=== PATIENT | female | born 1995 | race African-American/Black ===

== ENCOUNTER 2018-04-14 07:42 | Emergency (ER) | payer OTHER, MEDICAID, SELFPAY ==
[2018-04-14 08:04] VITALS: BP 120/88; PULSE 76; RESP 16; TEMP 36.8; O2SAT 100; BMI 26.1
--- NOTE | 2018-04-14 08:23 | ED.PREGNANCY ---
HPI - General Chief complaint: Vaginal Bleeding Stated complaint: MISCARRIAGE Time Seen by Provider: 04/14/18 08:13 Source: patient Mode of arrival: ambulatory Limitations: no limitations History of Present Illness HPI Narrative: 22-year-old otherwise healthy female here for evaluation of vaginal bleeding. Patient is approximately 11 weeks EGA. . Eleven weeks EGA is from a first-trimester ultrasound performed 2 weeks ago. Patient is here for 2 episodes of vaginal spotting. Denies abdominal pain. Denies nausea or vomiting. Has had some constipation secondary to the vitamins. Lost her 1st at 24 weeks from unknown causes. No fevers. No urinary symptoms. No prior abdominal surgeries. Patient : Yes Related Data Previous Rx's Medication Instructions Recorded vit-iron fum-folic ac 1 cap PO QDAY #90 cap 01/29/17 [Mynatal] oxycodone-acetaminophen 0 tab PO Q4HP PRN #30 09/09/17 Allergies Allergy/AdvReac Type Severity Reaction Status Date / Time No Known Drug Allergies Allergy Unknown Unverified 12/10/17 12:44 [NO KNOWN DRUG ALLERGIES] Review of Systems Constitutional Denies fever(s) and Denies lethargy ENT Ears, Nose, Mouth, and Throat: Denies vertigo and Denies dizziness Cardiovascular Denies chest pain and Denies dyspnea Respiratory Denies dyspnea Gastrointestinal Gastrointestinal: Denies abdominal pain, Reports constipation, Denies diarrhea, Denies nausea and Denies vomiting Genitourinary Denies dysuria, Denies pelvic pain, Denies urinary hesitancy, Denies urinary urgency and Denies vaginal discharge Comments: Vaginal bleeding in Musculoskeletal Denies myalgias and Denies arthralgias Integumentary/Breasts Denies lesions and Denies rash Neurologic Denies confusion, Denies vertigo and Denies dizziness Psychiatric Denies confusion Hematologic/Lymphatic Denies easy bleeding and Denies easy bruising PMFSH - Past Medical History Medical history: Reports no medical history Surgical history: Reports other (Fibroid) RECORDER OF DEEDS history: Reports Spontaneous Patient : Yes Family history: Reports no significant family history Exam Initial Vital Signs Initial Vital Signs: Vital Signs Temperature 98.2 F 04/14/18 08:04 Pulse Rate 76 04/14/18 08:04 Respiratory Rate 16 04/14/18 08:04 Blood Pressure 120/88 H 08/14/18 08:04 Pulse Oximetry 100 08/14/18 08:04 Const General: cooperative, healthy appearing and comfortable Orientation: alert, awake and oriented x3 HENMT Head: normal to inspection and normocephalic Resp Effort & Inspection: normal respiratory effort Cardio Rate: regular rate GI Inspection: normal to inspection and non-distended Palpation: soft, No firm and No tender Back/Spine/Pelvis Back: No CVA tenderness Skin Lesions: no lesions Rashes: no rashes Neuro General: awake and oriented x3 Cognition: normal cognition Speech: speech normal Extrem General: normal to inspection and capillary refill normal Psych Appearance: grossly normal and well kempt Course Orders Ordered: ED Orders 04/14/18 08:23 US OB <= 14 weeks fetus Stat 04/14/18 08:35 ABO RH Type Stat HCG Quantitative Stat Discontinued Medications Rho Immune Globulin (Hyperrho S-D) 1,500 unit IM NOW ONE Stop: 04/14/18 09:29 Vital Signs - 8 hr 04/14/18 08:04 Temperature 98.2 F Pulse Rate 76 Respiratory Rate 16 Blood Pressure 120/88 H Pulse Oximetry 100 MDM - OB/Uterine Contractions Medical Records Attestation: I reviewed the patient's medical records. Lab Data Attestation: I reviewed the patient's lab results. Lab Results 04/14/18 04/14/18 Range/Units 08:35 08:35 HCG, Quant 1486.6 mIU/mL Blood Type AB Negative Imaging Data US - abdomen: Radiologist's impression: PROCEDURE: US OB <= 14 WEEKS FETUS INDICATIONS: 11 weeks EGA with bleeding OUTSIDE/PRIOR DATING DATA: Last menstrual period (LMP): Unknown. LMP-based estimated date of delivery (MOY): N./A.. First dating scan (date and location): 04/14/2018. Estimated date of delivery (MOY) from first dating scan: 11/13/2018. TECHNIQUE: Real-time scanning was performed of the fetus and maternal pelvic organs, with image documentation. Endovaginal scanning was also performed to better visualize the fetus and maternal ovaries. COMPARISON: None. FINDINGS: Embryo: Intrauterine gestational sac contains a pole which shows crown-rump length of 2.7 cm, corresponding to estimated gestational age of 9 weeks 4 days. No cardiac activity is evident. Measurement variability in dating: +/- 4 weeks by LMP, +/- 7 days by mean sac diameter (use before 6 weeks gestation if crown-rump length not able to be measured), +/- 5 days by crown-rump length (up to 8 weeks 6 days gestation), +/- 7 days by crown-rump length (up to 13 weeks 6 days gestation). Maternal organs: Ovaries are not imaged. Limited images through the kidneys demonstrate no hydronephrosis. IMPRESSION: Intrauterine demise at 9 weeks 4 days gestational age. Report called to the ED by the technologist at 0905 hrs. Dictated by: Nikolas Romero M.D. on 04/14/2018 at 9:21 Approved by: Nikolas Romero M.D. on 04/14/2018 at 9:24 MDM Narrative Medical decision making narrative: Patient is Rh negative. Was given RhoGAM here in the ER. Ultrasound concerning for intrauterine demise. Discussed this with the patient and the father of the baby and her who was at bedside. Will follow up with Dr. Ferguson who is their OB provider. They were given return precautions. They expressed understanding and agreement with plan. Discharge Plan Departure Patient Disposition: Home, Self-Care Clinical Impression: Miscarriage Instructions: Dealing With Miscarriage, DI for Miscarriage Activity Restrictions/Additional Instructions: Recommend you follow up with Dr. Ferguson like we discussed. Return to the emergency department for any fevers, worsening abdominal pain, worsening bleeding, or any other new or concerning symptoms. You can continue to take your vitamins. Prescriptions: No Action vit-iron fum-folic ac [Mynatal] 1 EACH capsule 1 cap PO QDAY Qty: 90 RF: 3 oxycodone-acetaminophen 5 MG/325 MG tablet PO Q4HP PRNQty: 30 RF: 0
[2018-04-14 09:16] LABS: HCG Quantitative /Beta subunit 1486.6 mIU/mL
[2018-04-14 10:34] VITALS: BP 107/71; PULSE 63; RESP 16; O2SAT 100
[2018-04-14] MEDS: RHO(D) IMMUNE GLOBULIN 1,500 UNIT SYRINGE 1500 UNIT IM (11:12)
== END 2018-04-14 11:12 | disposition home or self-care (01) ==
PROVIDERS: Emergency Provider Emergency Medicine; PCP Obstetrics & Gynecology
DX: O03.9 Complete or unspecified spontaneous abortion without complication (principal)
CPT/HCPCS: 36415; 76801; 81003; 84702; 86900; 86901; 96372; 99282; 99284; J2790

== ENCOUNTER 2018-04-15 12:38 | Day surgery (SDC) | payer OTHER, MEDICAID, SELFPAY ==
[2018-04-15] VITALS (8 sets, daily range): BP systolic 105–121; BP diastolic 65–78; PULSE 58–75; RESP 12–18; TEMP 36.1–36.6; O2SAT 97–100; BMI 25.9
--- NOTE | 2018-04-15 | PATH_ITS ---
[facility] Accession Number: [id number] . 01 Material submitted: . POC . 02 Diagnosis: Products of Conception: Products of conception identified. MRV/04/17/2018 . 02 Electronically signed: . Pinky Reyna MD, Pathologist NPI- [id number] . 01 Gross description: . Received in formalin, labeled products of conception, are multiple fragments of garcia-mendiola and red-brown spongy and partially membranous tissue (5.8 x 5.0 x 1.5 cm in aggregate) containing a fragmenting developing fetus. Direct Marketing Manager tissue is submitted in cassettes A1-A4. ([id number]) /MRV . 02 Pathologist provided ICD-10: O02.1 . 02 CPT . 878545 Performed at: 01 [facility] [address] [id number] MD Man Green MD Phone: [phone] Performed at: 02 [facility] [address] [place] [id number] MD Acosta Nagel MD Phone: [phone]
[2018-04-15] MEDS: LACTATED RINGERS 1,000 ML 42 ML IV (13:30)
--- NOTE | 2018-04-15 13:45 | PM.PREOP ---
Pre-operative Note Interval Note Pre-op Check: Yes History & Physical exam performed today by Physician Changes: No
--- NOTE | 2018-04-15 14:12 | SUR.OPER ---
Lithotomy on padded OR bed, head on pillow, arms secured on padded arm boards at <90 degrees abduction. Legs secured in padded yellow fins stirrups.
[2018-04-15] MEDS: OXYCODONE/ACETAMINOPHEN 5/325 TABLET 1 TAB PO (14:55)
--- NOTE | 2018-04-27 07:10 | PM.GYNOP.1 ---
Operative Date/Time/Diagnoses Date of procedure: 04/15/18 Time of procedure: 15:00 Pre-op diagnosis: Missed Post-op diagnosis: same Procedure: Procedures Operation Date: 04/15/18 13:30 Actual Procedures Side Surgeon p Dilation and Curettage-Suction Bernadette Ferguson MD Indications: Missed Surgeon: Bernadette Ferguson Anesthesia Type: General Operative Notes Findings: 8 week size anteverted uterus Closure Type: not applicable Specimen(s): uterine contents Applied: catheter (In and out) Estimated blood loss (mL): 100 Procedure in detail: After informed consent was obtained, the patient was taken to the operating room where she was placed in the dorsal supine position. After adequate LMA general anesthesia was achieved, the patient was placed in the dorsal lithotomy position, and prepped and draped in the usual sterile fashion. A time-out was performed. A bivalve speculum was placed into the vagina and the anterior lip of the cervix grasped with a single-tooth tenaculum. The cervical os was sequentially dilated until a # 8 curved plastic curette could pass easily into the endometrial cavity. Several passes with suction revealed a large amount of tissue and blood. The suction curette was removed. Gentle sharp curettage was performed yielding minimal tissue. Several more passes with suction revealed blood only. The instruments were removed from the uterus. The single-tooth tenaculum was removed from the anterior lip of the cervix. The bivalve speculum was removed from the vagina. Sponge, lap, and instrument counts were correct x2. The patient tolerated the procedure well, and was taken to PACU in stable condition. Complications: none Post-operative Condition: stable Disposition: PACU Plan for aftercare: Home after recovery
--- NOTE | 2018-05-28 13:15 | PM.HP.1 ---
History of Present Illness Date Patient Seen: 04/15/18 Time Patient Seen: 11:00 Chief complaint: [id number] Narrative: Patient is a 22-year-old 3 para 0 with a missed at 8 weeks Patient History Medical History demise (Resolved 06/16/17) Miscarriage (Resolved 04/15/18) Surgical History Elective (Resolved 2011) History of dilation and curettage (Resolved 04/15/18) Status post myomectomy (Resolved 09/08/17) Family & Social History Social History: household members spouse Tobacco & Substance use: Smoking Status Never smoker alcohol intake frequency 0-2 drinks per day Substance Use Type does not use Meds Home Medications Medication Instructions Recorded Confirmed Type vit-iron fum-folic ac 1 cap PO QDAY #90 cap 01/29/17 04/29/18 Rx [Mynatal] Allergies Allergy/AdvReac Type Severity Reaction Status Date / Time No Known Drug Allergies Allergy Unknown Verified 04/29/18 10:22 [NO KNOWN DRUG ALLERGIES] Exam Vital Signs (past 8 hours): Oxygen Delivery Method Room Air Narrative Exam Narrative: HEENT: No thyromegaly, no anterior cervical or supraclavicular lymphadenopathy. Lungs:Clear to auscultation bilaterally, no wheezes. Cardiovascular: Regular rate and rhythm, no murmurs, rubs, or gallops. Abdomen: Well-healed scars. No hepatosplenomegaly. No masses palpable. External genitalia: Normal Vagina: Normal Cervix: Normal Bimanual exam: 9 Week size uterus. Mobile.] Rectal: No masses. Assessment & Plan (1) Missed with demise before 20 completed weeks of gestation: Current visit: No Status: Acute Plan: Assessment/Plan Narrative: Assessment: 22-year-old 3 para 0 with a missed at 9 weeks Plan: Suction D&C The risks, benefits, and alternatives to the procedure were explained to the patient. The risks including bleeding, infection, and uterine perforation. She understands these risks and agrees to proceed. A full capital P AR-Q was held and consent form was signed.
== END 2018-04-15 15:07 | disposition home or self-care (01) ==
PROVIDERS: PCP Obstetrics & Gynecology; Visit Provider Obstetrics & Gynecology
PROC: (CPT 58120; principal; 2018-04-15 13:30)
DX: O02.1 Missed abortion (principal); Z3A.09 9 weeks gestation of pregnancy
CPT/HCPCS: 59820; 88305; J1100; J2405; J2704; J3010

== ENCOUNTER → 2019-11-10 13:07 | Outpatient (CLI) | payer OTHER, MEDICAID, SELFPAY ==
--- NOTE | 2019-11-10 | DI.US.S_ITS ---
PROCEDURE: US OB <= 14 WEEKS FETUS INDICATIONS: INITIAL SIZING AND DATING OUTSIDE/PRIOR DATING DATA: Last menstrual period (LMP): 09/21/19. LMP-based estimated date of delivery (MOY): 06/27/20. First dating scan (date and location): 11/10/19. Estimated date of delivery (MOY) from first dating scan: 06/30/20. TECHNIQUE: Real-time scanning was performed of the fetus and maternal pelvic organs, with image documentation. Endovaginal scanning was also performed to better visualize the fetus and maternal ovaries. COMPARISON: [facility], , OB <= 14 WEEKS FETUS, 04/14/2018, 9:11. FINDINGS: Uterus: Numerous uterine fibroids. 4 such fibroids are measured on a single image, measuring 3.5-3.6, 2.1, and 3.0 cm respectively. Embryo: [place]-rump length measures 8 mm corresponding to 6 weeks 5 days. Heart rate measures 125 beats per minute. Measurement variability in dating: +/- 4 weeks by LMP, +/- 7 days by mean sac diameter (use before 6 weeks gestation if crown-rump length not able to be measured), +/- 5 days by crown-rump length (up to 8 weeks 6 days gestation), +/- 7 days by crown-rump length (up to 13 weeks 6 days gestation). Maternal organs: Ovaries within normal limits, with right ovarian cyst measuring 2.1 cm. Limited images through the kidneys demonstrate no hydronephrosis. IMPRESSION: 1. Fibroid uterus. 2. 6 week 5 day weiner IUP. Dictated by: Tripp Sauceda [facility] Interpreted: Demian Vo MD on 11/10/2019 at 16:39 Approved by: Demian Vo M.D. on 11/10/2019 at 17:00
== END ==
PROVIDERS: PCP Obstetrics & Gynecology; Referring Provider Obstetrics & Gynecology; Visit Provider Obstetrics & Gynecology
DX: Z36.87 Encounter for antenatal screening for uncertain dates (principal); O34.11 Maternal care for benign tumor of corpus uteri, first trimester; D25.9 Leiomyoma of uterus, unspecified; Z3A.01 Less than 8 weeks gestation of pregnancy
CPT/HCPCS: 76801

== ENCOUNTER → 2019-12-08 09:17 | Outpatient (CLI) | payer OTHER, MEDICAID, SELFPAY ==
[2019-12-08 10:40] LABS: Add Manual Diff / Slide Review NO; Basophils Absolute Auto 0 /uL (0-100); Basophils Percent Auto 0.8 % (0-2); Eosinophils Absolute Auto 0 /uL (0-450); Eosinophils Percent Auto 0.2 % (2-4); Hematocrit 37.3 % (36-46); Hemoglobin 12.6 g/dL (12.0-16.0); Lymphocytes Absolute Auto 1300 /uL (1100-4500); Lymphocytes Percent Auto 24.6 % (25-40); Mean Corpuscular HGB Conc 33.8 % (30-36); Mean Corpuscular Hemoglobin 28.7 PG (26-34); Monocytes Absolute Auto 400 /uL (0-900); Neutrophils Absolute Auto 3500 /uL (1500-7000); Neutrophils Percent Auto 67.4 % (50-75); Platelet Count 281 X10^3/uL (150-400); Red Blood Cell Count 4.39 X10^6/uL (4.0-5.2); Red Cell Distribution Width 15.6 % (11.6-14.8); White Blood Cell Count 5.2 X10^3/uL (4.5-11.0)
[2019-12-08 11:46] LABS: Appearance Urine UA CLEAR; Bilirubin Urine UA NEGATIVE (NEGATIVE); Color Urine UA YELLOW; Glucose Urine UA NEGATIVE (Negative); Ketones Urine UA NEGATIVE (NEGATIVE); Leukocyte Esterase Urine UA NEGATIVE (NEGATIVE); Nitrite Urine UA NEGATIVE (Negative); Occult Blood Urine UA NEGATIVE (Negative); Protein Urine UA NEGATIVE (Negative); Urobilinogen Urine UA 0.2 E.U./dL (0.2); pH Urine UA 6.5 (4.5-8.0)
[2019-12-09 07:17] LABS: RPR Screen Non Reactive (Non Reactive)
[2019-12-09 11:24] LABS: Varicella IgG Antibody 2127 index (Immune >165)
[2019-12-09 15:27] LABS: Hepatitis B Surface Antigen NEGATIVE s/c (NEGATIVE); Rubella Antibody IgG > 350.0 IU/mL (>15)
[2019-12-09 15:44] LABS: HIV 1 & 2 Ab/Ag 4th Gen Combo NEGATIVE (NEGATIVE); Hep C Virus Ab w/Reflex Quant NEGATIVE s/c (NEGATIVE)
== END ==
PROVIDERS: Referring Provider Obstetrics & Gynecology; Visit Provider Obstetrics & Gynecology
DX: Z34.01 Encounter for supervision of normal first pregnancy, first trimester (principal)
CPT/HCPCS: 36415; 80055; 81003; 86787; 86803; 86850; 86900; 86901; 87086; 87389

== ENCOUNTER → 2020-04-06 09:06 | Outpatient (CLI) | payer OTHER, MEDICAID, SELFPAY ==
--- NOTE | 2020-04-06 10:56 | PM.OBTRLD ---
Visit Information Visit Information Date of evaluation: 04/06/20 Primary OB Provider: Bernadette Ferguson Reason for Evaluation: Yes non-stress test non-stress test reason: other (History of still at 28 week) [facility] Medical History (Updated 04/06/20 @ 09:09 by Bernadette Ferguson MD) demise (Resolved 06/16/17) History of stillbirth (Acute) Miscarriage (Resolved 04/15/18) Surgical History (Updated 04/22/18 @ 12:40 by Maggie Cobb) Elective (Resolved 2011) History of dilation and curettage (Resolved 04/15/18) Status post myomectomy (Resolved 09/08/17) Family History (Updated 11/18/19 @ 10:49 by Ani Bryson RN) Father No problems noted. Mother Head injury Sister No problems noted. Family/Other Cancer Social History (System 04/14/18 @ 08:38 by Leandra Allen) marital status: household members: spouse and children pets and animals: No education level: college occupational status: employed current occupational exposures/hazards: Yes yossi/lutheran: Mormonism Smoking Status: Never smoker second hand exposure: No alcohol intake: never substance use type: does not use Objective Labs Result Diagrams: 04/06/20 10:34 Evaluation Evaluation Baseline heart rate: 130 Variability: Average (6-10) monitor accelerations: Present monitor decelerations: Absent Category of Tracing: Appropriate for gestational age Diagnosis, Plan/Disposition Plan/Disposition Plan: Assessment: 24-year-old 4 para 0120 at 27 and 6 7th weeks gestation with a history of a stillbirth at 28 weeks Nonstress test appropriate for gestational age Plan: kick counts Follow-up in 1 week for nonstress test Complete 1 hour glucose test today Follow-up in 2 weeks for OB visit with [facility] Disposition: home
[2020-04-06 11:10] LABS: Hematocrit 31.9 % (36-46)
[2020-04-06 12:05] LABS: GTT (PREG) 1 Hour PP 50gm Dose 120 mg/dL (76-139)
== END ==
LOC: LAB 09:08 → LABOR 09:31 → LAB 07-26 00:07
PROVIDERS: PCP Obstetrics & Gynecology; Referring Provider Obstetrics & Gynecology; Visit Provider Obstetrics & Gynecology
DX: Z34.02 Encounter for supervision of normal first pregnancy, second trimester (principal); Z3A.27 27 weeks gestation of pregnancy
CPT/HCPCS: 36415; 59025; 82950; 85014; 85018; 86850; G0378

== ENCOUNTER 2020-04-20 14:14 | Outpatient (CLI) | payer OTHER, MEDICAID, SELFPAY ==
--- NOTE | 2020-04-20 15:31 | PM.OBTRLD ---
Visit Information Visit Information Date of evaluation: 04/20/20 Primary OB Provider: Bernadette Ferguson Reason for Evaluation: Yes non-stress test non-stress test reason: other (History of still at 28 weeks) [facility] Medical History (Updated 04/06/20 @ 09:09 by Bernadette Ferguson MD) demise (Resolved 06/16/17) History of stillbirth (Acute) Miscarriage (Resolved 04/15/18) Surgical History (Updated 04/22/18 @ 12:40 by Maggie Cobb) Elective (Resolved 2011) History of dilation and curettage (Resolved 04/15/18) Status post myomectomy (Resolved 09/08/17) Family History (Updated 11/18/19 @ 10:49 by Ani Bryson RN) Father No problems noted. Mother Head injury Sister No problems noted. Family/Other Cancer Social History (System 04/14/18 @ 08:38 by Leandra Allen) marital status: household members: spouse and children pets and animals: No education level: college occupational status: employed current occupational exposures/hazards: Yes yossi/faith: Tenriism Smoking Status: Never smoker second hand exposure: No alcohol intake: never substance use type: does not use Evaluation Evaluation Baseline heart rate: 125 Variability: Average (6-10) monitor accelerations: Present monitor decelerations: Absent Category of Tracing: Reactive Diagnosis, Plan/Disposition Plan/Disposition Plan: Assessment: 24-year-old 4 para 0 at 29 weeks gestation with a history of a stillbirth at 28 weeks Reactive nonstress test Plan: Discharge to home kick counts reviewed Follow-up in 1 week for nonstress test OB Disposition: home
== END 2020-04-20 15:00 | disposition home or self-care (01) ==
LOC: LABOR 14:24 → OB 04-24 16:32
PROVIDERS: PCP Obstetrics & Gynecology; Referring Provider Obstetrics & Gynecology; Visit Provider Obstetrics & Gynecology
DX: O09.293 Supervision of pregnancy with other poor reproductive or obstetric history, third trimester (principal); Z3A.29 29 weeks gestation of pregnancy
CPT/HCPCS: 59025; G0378; G0379

== ENCOUNTER 2020-04-27 10:44 | Outpatient (CLI) | payer OTHER, MEDICAID, SELFPAY ==
--- NOTE | 2020-04-27 11:46 | PM.OBTRLD ---
Visit Information Visit Information Date of evaluation: 04/27/20 Primary OB Provider: Bernadette Ferguson On-call OB Provider: Althea Lee Reason for Evaluation: Yes non-stress test non-stress test reason: other (prior demise) [facility] Medical History (Updated 04/06/20 @ 09:09 by Bernadette Ferguson MD) demise (Resolved 06/16/17) History of stillbirth (Acute) Miscarriage (Resolved 04/15/18) Surgical History (Updated 04/22/18 @ 12:40 by Maggie Cobb) Elective (Resolved 2011) History of dilation and curettage (Resolved 04/15/18) Status post myomectomy (Resolved 09/08/17) Family History (Updated 11/18/19 @ 10:49 by Ani Bryson RN) Father No problems noted. Mother Head injury Sister No problems noted. Family/Other Cancer Social History (System 04/14/18 @ 08:38 by Leandra Allen) marital status: household members: spouse and children pets and animals: No education level: college occupational status: employed current occupational exposures/hazards: Yes yossi/presybeterian: Nondenominational Smoking Status: Never smoker second hand exposure: No alcohol intake: never substance use type: does not use Evaluation Evaluation Baseline heart rate: 130 Variability: Moderate (11-25) monitor accelerations: Absent monitor decelerations: Variable (Two small not concerning) Contraction Frequency (minutes): 0 Category of Tracing: Reactive Diagnosis, Plan/Disposition Final Diagnosis (1) History of stillbirth: Status: Acute Plan/Disposition Plan: Reactive nonstress test. Keep her scheduled OB appointment and weekly nonstress tests. OB Disposition: home
== END 2020-04-27 11:55 | disposition home or self-care (01) ==
LOC: OB 04-28 12:18
PROVIDERS: PCP Obstetrics & Gynecology; Referring Provider Obstetrics & Gynecology; Visit Provider Obstetrics & Gynecology
DX: O09.293 Supervision of pregnancy with other poor reproductive or obstetric history, third trimester (principal)
CPT/HCPCS: 59025; G0378; G0379

== ENCOUNTER 2020-05-04 15:31 | Outpatient (CLI) | payer OTHER, MEDICAID, SELFPAY ==
--- NOTE | 2020-05-04 16:41 | P.TNLD_ITS ---
Visit Information Visit Information Date of evaluation: 05/04/20 Primary OB Provider: Bernadette Ferguson Reason for Evaluation: Yes non-stress test non-stress test reason: other (h/o IUFD at 28 weeks) [facility] Medical History (Updated 04/06/20 @ 09:09 by Bernadette Ferguson MD) demise (Resolved 06/16/17) History of stillbirth (Acute) Miscarriage (Resolved 04/15/18) Surgical History (Updated 04/22/18 @ 12:40 by Maggie Cobb) Elective (Resolved 2011) History of dilation and curettage (Resolved 04/15/18) Status post myomectomy (Resolved 09/08/17) Family History (Updated 11/18/19 @ 10:49 by Ani Bryson RN) Father No problems noted. Mother Head injury Sister No problems noted. Family/Other Cancer Social History (System 04/14/18 @ 08:38 by Leandra Allen) marital status: household members: spouse and children pets and animals: No education level: college occupational status: employed current occupational exposures/hazards: Yes yossi/judaism: Samaritan Smoking Status: Never smoker second hand exposure: No alcohol intake: never substance use type: does not use Evaluation Evaluation Baseline heart rate: 130 Variability: Moderate (11-25) monitor accelerations: Present monitor decelerations: Absent Contraction Frequency (minutes): 0 Category of Tracing: Reactive Diagnosis, Plan/Disposition Plan/Disposition Plan: Assessment: 31 weeks gestation h/o IUFD at 28 weeks Reactive NST Plan: [facility] F/U 1 week OB Disposition: home
== END 2020-05-04 16:44 | disposition home or self-care (01) ==
LOC: LABOR 16:44 → OB 05-09 11:45
PROVIDERS: PCP Obstetrics & Gynecology; Referring Provider Obstetrics & Gynecology; Visit Provider Obstetrics & Gynecology
DX: O26.23 Pregnancy care for patient with recurrent pregnancy loss, third trimester (principal); Z3A.31 31 weeks gestation of pregnancy
CPT/HCPCS: 59025; G0378; G0379

== ENCOUNTER 2020-05-12 11:15 | Outpatient (CLI) | payer OTHER, MEDICAID, SELFPAY | END 2020-05-12 11:45 | disposition home or self-care (01) | LOC: OB 05-15 12:29 | PROVIDERS: PCP Obstetrics & Gynecology; Referring Provider Obstetrics & Gynecology; Visit Provider Obstetrics & Gynecology | DX: O26.23 Pregnancy care for patient with recurrent pregnancy loss, third trimester (principal); Z3A.33 33 weeks gestation of pregnancy | CPT/HCPCS: 59025; G0378; G0379 ==

== ENCOUNTER 2020-05-18 16:26 | Outpatient (CLI) | payer OTHER, MEDICAID, SELFPAY ==
--- NOTE | 2020-05-21 12:05 | P.TNLD_ITS ---
Visit Information Visit Information Date of evaluation: 05/18/20 Primary OB Provider: Bernadette Ferguson Reason for Evaluation: Yes non-stress test non-stress test reason: other (h/o demise at 28 weeks) [facility] Medical History (Updated 04/06/20 @ 09:09 by Bernadette Ferguson MD) demise (Resolved 06/16/17) History of stillbirth (Acute) Miscarriage (Resolved 04/15/18) Surgical History (Updated 04/22/18 @ 12:40 by Maggie Cobb) Elective (Resolved 2011) History of dilation and curettage (Resolved 04/15/18) Status post myomectomy (Resolved 09/08/17) Family History (Updated 11/18/19 @ 10:49 by Ani Bryson RN) Father No problems noted. Mother Head injury Sister No problems noted. Family/Other Cancer Social History (System 04/14/18 @ 08:38 by Leandra Allen) marital status: household members: spouse and children pets and animals: No education level: college occupational status: employed current occupational exposures/hazards: Yes yossi/yazidism: Voodoo Smoking Status: Never smoker second hand exposure: No alcohol intake: never substance use type: does not use Evaluation Evaluation Baseline heart rate: 120 Variability: Moderate (11-25) monitor accelerations: Present monitor decelerations: Absent Category of Tracing: Reactive Diagnosis, Plan/Disposition Plan/Disposition Plan: Assessment: Reactive NST Plan: D/C to home [facility] F/U 1 week OB Disposition: home
== END 2020-05-18 17:35 | disposition home or self-care (01) ==
LOC: LABOR 17:51 → OB 05-19 12:42
PROVIDERS: PCP Obstetrics & Gynecology; Referring Provider Obstetrics & Gynecology; Visit Provider Obstetrics & Gynecology
DX: O26.23 Pregnancy care for patient with recurrent pregnancy loss, third trimester (principal); Z3A.33 33 weeks gestation of pregnancy
CPT/HCPCS: 59025; G0378; G0379

== ENCOUNTER 2020-05-25 11:31 | Outpatient (CLI) | payer OTHER, MEDICAID, SELFPAY ==
--- NOTE | 2020-05-29 07:13 | P.TNLD_ITS ---
Visit Information Visit Information Date of evaluation: 05/25/20 Primary OB Provider: Bernadette Ferguson Reason for Evaluation: Yes non-stress test non-stress test reason: other (History of demise at 28 weeks) [facility] Medical History (Updated 04/06/20 @ 09:09 by Bernadette Ferguson MD) demise (Resolved 06/16/17) History of stillbirth (Acute) Miscarriage (Resolved 04/15/18) Surgical History (Updated 04/22/18 @ 12:40 by Maggie Cobb) Elective (Resolved 2011) History of dilation and curettage (Resolved 04/15/18) Status post myomectomy (Resolved 09/08/17) Family History (Updated 11/18/19 @ 10:49 by Ani Bryson RN) Father No problems noted. Mother Head injury Sister No problems noted. Family/Other Cancer Social History (System 04/14/18 @ 08:38 by Leandra Allen) marital status: household members: spouse and children pets and animals: No education level: college occupational status: employed current occupational exposures/hazards: Yes yossi/pentecostalism: Jainism Smoking Status: Never smoker second hand exposure: No alcohol intake: never substance use type: does not use Evaluation Evaluation Baseline heart rate: 130 Variability: Moderate (11-25) monitor accelerations: Present monitor decelerations: Absent Category of Tracing: Reactive Diagnosis, Plan/Disposition Plan/Disposition Plan: Assessment: Reactive NST Plan: D/C to home [facility] F/U 1 week OB Disposition: home
== END 2020-05-25 12:09 | disposition home or self-care (01) ==
LOC: OB 05-29 09:40
PROVIDERS: PCP Obstetrics & Gynecology; Referring Provider Obstetrics & Gynecology; Visit Provider Obstetrics & Gynecology
DX: O26.23 Pregnancy care for patient with recurrent pregnancy loss, third trimester (principal); M54.5 Low back pain; Z3A.34 34 weeks gestation of pregnancy
CPT/HCPCS: 59025; G0378; G0379

== ENCOUNTER 2020-06-01 14:29 | Outpatient (CLI) | payer OTHER, MEDICAID, SELFPAY ==
--- NOTE | 2020-06-01 14:51 | P.TNLD_ITS ---
Visit Information Visit Information Date of evaluation: 06/01/20 Primary OB Provider: Bernadette Ferguson Reason for Evaluation: Yes non-stress test non-stress test reason: other (History of still ) [facility] Medical History (Updated 04/06/20 @ 09:09 by Bernadette Ferguson MD) demise (Resolved 06/16/17) History of stillbirth (Acute) Miscarriage (Resolved 04/15/18) Surgical History (Updated 04/22/18 @ 12:40 by Maggie Cobb) Elective (Resolved 2011) History of dilation and curettage (Resolved 04/15/18) Status post myomectomy (Resolved 09/08/17) Family History (Updated 11/18/19 @ 10:49 by Ani Bryson RN) Father No problems noted. Mother Head injury Sister No problems noted. Family/Other Cancer Social History (System 04/14/18 @ 08:38 by Leandra Allen) marital status: household members: spouse and children pets and animals: No education level: college occupational status: employed current occupational exposures/hazards: Yes yossi/mosque: Orthodox Smoking Status: Never smoker second hand exposure: No alcohol intake: never substance use type: does not use Evaluation Evaluation Baseline heart rate: 135 Variability: Moderate (11-25) monitor accelerations: Present monitor decelerations: Absent Category of Tracing: Reactive Diagnosis, Plan/Disposition Plan/Disposition Plan: Assessment: 24-year-old 4 para 0120 at 35 weeks gestation with a history of a stillbirth Reactive nonstress test Plan: kick count Discharge to home OB Disposition: home
== END 2020-06-01 14:57 | disposition home or self-care (01) ==
LOC: OB 06-05 15:07
PROVIDERS: PCP Obstetrics & Gynecology; Referring Provider Obstetrics & Gynecology; Visit Provider Obstetrics & Gynecology
DX: O26.23 Pregnancy care for patient with recurrent pregnancy loss, third trimester (principal); Z3A.35 35 weeks gestation of pregnancy
CPT/HCPCS: 59025; 87653; G0378; G0379

== ENCOUNTER → 2020-06-01 15:09 | Outpatient (CLI) | payer OTHER, MEDICAID, SELFPAY ==
[2020-06-02 14:52] LABS: Strep Grp B PCR POS for Grp B Strep
== END ==
PROVIDERS: PCP Obstetrics & Gynecology; Visit Provider Obstetrics & Gynecology
DX: Z34.83 Encounter for supervision of other normal pregnancy, third trimester (principal); Z3A.36 36 weeks gestation of pregnancy
CPT/HCPCS: 87653

== ENCOUNTER 2020-06-07 16:00 | Outpatient (CLI) | payer OTHER, MEDICAID, SELFPAY | END 2020-06-07 16:43 | disposition home or self-care (01) | LOC: OB 06-08 12:43 | PROVIDERS: PCP Obstetrics & Gynecology; Referring Provider Obstetrics & Gynecology; Visit Provider Obstetrics & Gynecology | DX: O26.23 Pregnancy care for patient with recurrent pregnancy loss, third trimester (principal); Z3A.36 36 weeks gestation of pregnancy | CPT/HCPCS: 59025; G0378; G0379 ==

== ENCOUNTER 2020-06-08 17:27 | Inpatient (IN) | payer OTHER, MEDICAID, SELFPAY ==
[2020-06-08 17:30] VITALS: BP 125/77
[2020-06-08 18:50] LABS: Add Manual Diff / Slide Review NO; Basophils Absolute Auto 0 /uL (0-100); Basophils Percent Auto 0.5 % (0-2); Eosinophils Absolute Auto 0 /uL (0-450); Eosinophils Percent Auto 0.2 % (2-4); Hematocrit 39.7 % (36-46); Hemoglobin 13.6 g/dL (12.0-16.0); Lymphocytes Absolute Auto 900 /uL (1100-4500); Lymphocytes Percent Auto 16.3 % (25-40); Mean Corpuscular HGB Conc 34.3 % (30-36); Mean Corpuscular Hemoglobin 30.6 PG (26-34); Mean Corpuscular Volume 89.1 fL (80-100); Monocytes Absolute Auto 300 /uL (0-900); Monocytes Percent Auto 5.4 % (3-14); Neutrophils Absolute Auto 4100 /uL (1500-7000); Neutrophils Percent Auto 77.6 % (50-75); Platelet Count 308 X10^3/uL (150-400); Red Blood Cell Count 4.46 X10^6/uL (4.0-5.2); Red Cell Distribution Width 14.6 % (11.6-14.8); White Blood Cell Count 5.2 X10^3/uL (4.5-11.0)
--- NOTE | 2020-06-08 18:54 | PM.PREOP ---
Pre-operative Note COVID-19 COVID-19 status: Negative Result date/Date tested (Pos, Neg/Pending): 06/08/20 Interval Note History & Physical reviewed/Exam performed by Physician: Yes Changes to H&P: No H&P completed within 30 days and has changed as indicated here:: 06/08/20
--- NOTE | 2020-06-08 18:55 | PM.OBHP.1 ---
OB HPI Date/Time Date of admission: 06/08/20 Date Patient Seen: 06/08/20 Time Patient Seen: 18:57 History of Present Condition Chief complaint: observation of labor : 4 Para: 0 Estimated Date of Delivery: 06/30/20 Estimated Gestational Age (weeks): 36+ 6 Narrative: Keysha Zimmerman is a 24 year old female 4 para 0120 who presents at 37 weeks gestation with spontaneous rupture membranes. She is scheduled for a section due to previous hysterotomy and a myomectomy Indications Operative indications ( section): previous uterine surgery History of Present care: good care Dating criteria: LMP confirmed by 1st trimester US Ultrasounds: normal 1st trimester US and normal mid trimester US Obstetrical complications: none Medical complications: none Evaluation Evaluation Baseline heart rate: 135 Variability: Moderate (11-25) monitor accelerations: Present monitor decelerations: Variable Contraction Frequency (minutes): 4 Uterine Contraction Intensity: Mild Category of Tracing: Reactive [facility] Medical History (Updated 04/06/20 @ 09:09 by Bernadette Ferguson MD) demise (Resolved 06/16/17) History of stillbirth (Acute) Miscarriage (Resolved 04/15/18) Surgical History (Updated 04/22/18 @ 12:40 by Maggie Cobb) Elective (Resolved 2011) History of dilation and curettage (Resolved 04/15/18) Status post myomectomy (Resolved 09/08/17) Family History (Updated 11/18/19 @ 10:49 by Ani Bryson RN) Father No problems noted. Mother Head injury Sister No problems noted. Family/Other Cancer Social History (System 04/14/18 @ 08:38 by Leandra Allen) marital status: household members: spouse and children pets and animals: No education level: college occupational status: employed current occupational exposures/hazards: Yes yossi/temple: Nondenominational Smoking Status: Never smoker second hand exposure: No alcohol intake: never substance use type: does not use Meds Home Medications and Allergies Home Medications Medication Instructions Recorded Confirmed Type vitamin-ferrous fumarate 1 cap PO QDAY #90 cap 03/13/20 06/07/20 Rx 65 mg iron-folic acid 1 mg capsule Allergies Allergy/AdvReac Type Severity Reaction Status Date / Time No Known Drug Allergies Allergy Unknown Verified 06/07/20 14:59 [NO KNOWN DRUG ALLERGIES] Exam Vital Signs (past 8 hours): Generally: Patient lying in bed, no distress secondary to contractions Lungs: Clear to auscultation bilaterally Cardiovascular: Regular rate and rhythm Fundal height: 37 cm Estimated weight: 6-1/2 lb Extremities: Negative Homans, no edema, DTRs 1+ Objective Labs Result Diagrams: 06/08/20 18:30 Assessment and Plan Assessment and Plan Assessment and Plan narrative: Assessment: 24-year-old 4 para 0120 at 36 and 6/7th weeks gestation with spontaneous rupture of membranes and previous myomectomy and hysterotomy Plan: Primary section The risks, benefits, and alternatives to the procedure were explained to the patient. The risks including bleeding, infection, injury to the bowel, bladder, or ureters. She understands these risks and agrees to proceed. A full par Q was held and consent form was signed. Time Spent with Patient Total time spent with greater than 50% in coordination of care (as documented) at patient's floor/unit and/or counseling patient:: 15-24 minutes
[2020-06-08] MEDS: LACTATED RINGERS 1,000 ML 1000 ML IV (19:25)
[2020-06-08 19:28] LABS: COVID19 -Nasal RAPID Negative (Negative)
[2020-06-08] MEDS: CEFAZOLIN 2 GM/100 ML FROZ.PIGGY IV (19:38)
--- NOTE | 2020-06-08 20:04 | SUR.OPER ---
Supine on Padded OR bed, head on pillow, safety belt at thigh, arms secured on padded arm boards at <90 degrees abduction. Bump under right buttock. Legs uncrossed with pillow under knees, gel pad to heels, tape over blanket to lower legs.
[2020-06-08] MEDS: LACTATED RINGERS 1,000 ML 42 ML IV (20:05)
[2020-06-08 20:57] VITALS: BP 115/69; PULSE 92; RESP 15; TEMP 36.8; O2SAT 100
--- NOTE | 2020-06-08 20:57 | PM.GYNOP.1 ---
Operative Date/Time/Diagnoses Date of procedure: 06/08/20 Time of procedure: 20:57 Pre-op diagnosis: Intrauterine at 36 and 6 7th weeks gestation Spontaneous rupture of membranes Previous hysterotomy and myomectomy Post-op diagnosis: same Procedure & Clinicians Procedure: Procedures Operation Date: 06/08/20 19:30 Actual Procedures Side Surgeon p Section Bernadette Ferguson MD Indications: 36 6/7 wks Spontaneous rupture of membranes Previous hysterotomy and myomectomy Surgeon: Bernadette Ferguson Partner Marketing Manager: Benjamín Rae Anesthesia Type: Spinal (with Duramorph) Operative Notes Findings: Live male infant in vertex presentation Nl left tube and ovary Nl right tube Could not visualize right ovary Uterine to bladder adhesions Uterine to anterior abdominal wall adhesions Closure Type: primary Specimen(s): other (Placenta to path, cord bloods the lab) Applied: catheter (To continuous drainage) Estimated blood loss (mL): 600 Blood products transfused: none Procedure in detail: The patient was taken to the operating room where she was placed in the seated position. Spinal anesthesia was administered with Duramorph. She was then placed in the dorsal supine position with a leftward tilt. She was prepped and draped in the usual sterile fashion. A timeout was performed. After spinal analgesia was found to be adequate, a Pfannenstiel skin incision was made 2 fingerbreadths above the pubic symphysis and carried through to the underlying layer fascia. The fascia was nicked in the midline, and the incision extended bilaterally with the [place] scissors. The superior aspect of the fascial incision was grasped with a [place] clamps, elevated, and the underlying rectus muscles dissected off sharply and bluntly. Attention was then turned to the inferior aspect of this incision which in a similar fashion was grasped with a [place] clamps, elevated, and the underlying rectus muscles dissected off sharply and bluntly. The rectus muscles were in the midline. The peritoneum was identified, grasped between 2 hemostats, and entered sharply with the Metzenbaum scissors. This incision was extended superiorly and inferiorly with good visualization of the bladder. The bladder blade was inserted. The vesicouterine peritoneum was identified, grasped with the pickup, and entered sharply with the Metzenbaum scissors. There were adhesions from the bladder to uterus and these were taken down sharply with the Metzenbaum scissors. This incision was extended bilaterally, and the bladder flap was created digitally. The bladder blade was reinserted. The lower uterine segment was incised in a transverse fashion with the scalpel. Upon entering the amniotic sac there was a small amount of clear amniotic fluid. The infant's head was delivered with vacuum assistance. The nose and mouth were suctioned with bulb suction. The remainder of the body delivered without difficulty. The cord was double clamped and cut. The infant was handed off to waiting RN and RT. The placenta was delivered manually. The uterus was cleared of all clots and debris. The uterine incision was repaired with #1 chromic in a running interlocking fashion, and a second layer the same suture was used for an imbricating layer. There was bleeding in the middle of the incision and a [id number] suture with 2 0 Vicryl was placed for hemostasis. The left tube and ovary were examined and were found to be normal. The right tube was identified and was found to be normal. The right ovary could not be visualized but was palpated and was normal. There were adhesions between the fundus of the uterus and the anterior abdominal wall. The gutters were cleared of all clots and debris. The bladder flap was reapproximated using 2-0 Vicryl in a running fashion. The parietal peritoneum was closed using 2-0 Vicryl in a running fashion. The fascia was reapproximated using 0 Vicryl in a running fashion. Subcutaneous layer was copiously irrigated with warm normal saline. Five simple interrupted sutures of 3-0 Vicryl were placed to reapproximate the subcutaneous layer. The skin was closed with 4-0 Biosyn in a subcuticular fashion. Steri-Strips were placed. An Aquacel dressing was placed. The uterus was expressed of a small amount of old blood. Sponge, lap, and instrument counts were correct x-2. The patient tolerated the procedure well, and was taken to PACU in stable condition. Complications: none Post-operative Condition: stable Disposition: PACU Plan for aftercare: To the center after recovery
[2020-06-08 21:02] VITALS: BP 120/70; PULSE 94; RESP 16; O2SAT 100
[2020-06-08 21:07] VITALS: BP 124/68; PULSE 97; RESP 13; O2SAT 100
[2020-06-08 21:12] VITALS: BP 115/68; PULSE 93; RESP 12; TEMP 36.3; O2SAT 100
--- NOTE | 2020-06-08 21:25 | SUR.PHASEI ---
Pt transferred to center in stable condition, vss. Bedside report given to REENA Pat in center. Pt at bedside. pt alert and talking to RN.
[2020-06-08] MEDS: METOCLOPRAMIDE 10 MG/2 ML INJ IV (22:58)
[2020-06-08] MEDS: LACTATED RINGERS 1,000 ML 100 ML IV (23:55)
[2020-06-09] MEDS: KETOROLAC 30 MG/ML VIAL IV ×3 (02:04→15:16)
[2020-06-09 06:41] LABS: Hematocrit 32.9 % (36-46); Hemoglobin 11.6 g/dL (12.0-16.0)
[2020-06-09] MEDS: DOCUSATE 250 MG CAPSULE PO (08:55)
[2020-06-09] MEDS: PRENATAL VIT,CALC/IRON/FOLIC 1 TABLET 1 TAB PO (08:55)
--- NOTE | 2020-06-09 18:02 | PM.PNPO.1 ---
Subjective Subjective Date Patient Seen: 06/09/20 Time Patient Seen: 18:02 Interval history: Patient is a 24-year-old 4 para 0 2 1 1 who is postop day # 1 status post primary low-transverse section due to spontaneous rupture of membranes at 36 and 6 7th weeks gestation and previous myomectomy and hysterotomy. Patient's catheter was removed this morning and she has been able to void. She is not having any pain. She is using ibuprofen and Tylenol for pain management. She has tolerated a diet. She said that is going better. Bleeding is tapering. Exam Vital Signs (past 8 hours): Oxygen Delivery Method Room Air Narrative Exam Narrative: Generally: Patient is sitting up in bed, holding , no acute distress Lungs: Clear to auscultation bilaterally Cardiovascular: Regular rate and rhythm Abdomen: Soft, good bowel sounds Fundus: U -1 and deviated to the right due to fibroid Incision: Clean dry and intact with Aquacel dressing Extremities: Negative Homans, no edema Objective Labs Result Diagrams: 06/09/20 06:30 Labs: Laboratory Results - last 24 hr 06/08/20 06/08/20 06/08/20 18:30 18:30 18:50 WBC 5.2 RBC 4.46 Hgb 13.6 Hct 39.7 MCV 89.1 MCH 30.6 MCHC 34.3 RDW 14.6 Plt Count 308 Neut % (Auto) 77.6 H Lymph % (Auto) 16.3 L [place] % (Auto) 5.4 Eos % (Auto) 0.2 L Baso % (Auto) 0.5 Neut # (Auto) 4100 Lymph # (Auto) 900 L [place] # (Auto) 300 Eos # (Auto) 0 Baso # (Auto) 0 COVID-19 PCR Negative Blood Type AB Negative Antibody Screen Negative Maternal Bleed 06/09/20 06/09/20 06:30 06:30 WBC RBC Hgb 11.6 L Hct 32.9 L MCV MCH MCHC RDW Plt Count Neut % (Auto) Lymph % (Auto) [place] % (Auto) Eos % (Auto) Baso % (Auto) Neut # (Auto) Lymph # (Auto) [place] # (Auto) Eos # (Auto) Baso # (Auto) COVID-19 PCR Blood Type Antibody Screen Maternal Bleed Negative Assessment & Plan Post-op Postoperative Procedures: Procedures Operation Date: 06/08/20 19:30 Actual Procedures Side Surgeon p Section Bernadette Ferguson MD Postoperative day: 1 Postoperative status: doing well Postoperative plan: routine post-op care Time Spent With Patient Time with patient: less than 15 minutes
[2020-06-09] MEDS: IBUPROFEN 600 MG TABLET PO (21:11)
[2020-06-10] MEDS: IBUPROFEN 600 MG TABLET PO ×4 (03:12→21:58)
[2020-06-10] MEDS: RHO(D) IMMUNE GLOBULIN 1,500 UNIT SYRINGE 1500 UNIT IM (04:27)
[2020-06-10] MEDS: DOCUSATE 250 MG CAPSULE PO (08:53)
[2020-06-10] MEDS: PRENATAL VIT,CALC/IRON/FOLIC 1 TABLET 1 TAB PO (08:53)
[2020-06-10 09:45] VITALS: BP 104/61; PULSE 82; RESP 16; TEMP 37.3
--- NOTE | 2020-06-10 10:42 | PM.OBPN.1 ---
Subjective - OB Subjective Patient comments: no complaints, tolerating diet and flatus present [place] baby status: doing well and other (Slightly jaundice, some nursing issues) [place] feeding status: exclusively breast feeding Date Patient Seen: 06/10/20 Time Patient Seen: 10:42 Interval history: Patient is a 24-year-old 4 para 0 2 2 1 postop day # 1-2 status post primary low-transverse section at 36 and 6 7th weeks gestation due to spontaneous rupture of membranes and previous uterine surgery She is tolerating a diet. She has voided without the catheter. She is ambulating without assistance. Her bleeding is tapering. She is having some issues with breast-feeding. Exam Vital Signs (past 8 hours): - 06/10/20 09:45 Temperature 99.2 F Pulse Rate 82 Respiratory Rate 16 Blood Pressure 104/61 Oxygen Delivery Method Room Air Narrative Exam Narrative: Generally: Patient is sitting up in bed, no acute distress Lungs: Clear to auscultation bilaterally Cardiovascular: Regular rate and rhythm Abdomen: Soft, good bowel sounds Fundus: Firm at U -1, deviated to the right Incision: Clean dry and intact with Aquacel dressing Extremities: Negative Homans, no edema Objective Labs Result Diagrams: 06/09/20 06:30 Assessment & Plan Plan day: 2 plan OB: routine postop care Comments: support Time Spent With Patient Time: Total time spent is greater than 50% in coordination of care (as documented) at patient's floor/unit and/or counseling patient: Time with patient: 15-24 minutes
[2020-06-11] MEDS: ACETAMINOPHEN 325 MG TABLET 650 MG PO (04:46)
[2020-06-11] MEDS: IBUPROFEN 600 MG TABLET PO ×2 (04:47→11:27)
--- NOTE | 2020-06-12 09:35 | PM.OBDS.1 ---
Discharge Providers Provider Date of admission: 06/08/20 17:27 Discharge Date: 06/11/20 Primary care physician: Bernadette Ferguson MD Consults: 06/08/20 22:09 Consult to Washer Engineer Helper Routine Comment: Discharge provider: Bernadette Ferguson MD Summary Hospital Course Date Patient Seen: 06/11/20 Time Patient Seen: 09:20 Procedures: Primary low-transverse section Spinal anesthesia Hospital Course: Patient is a 24-year-old 4 para 0 2 2 1 postop day # 2-3 status post primary low-transverse section secondary to spontaneous rupture of membranes at 36 and 6 7th weeks gestation and previous myomectomy and hysterotomy. Patient underwent a primary low-transverse section without complication. Her postoperative course was unremarkable. On postop day # 1 her [place] catheter was removed and she was able to void spontaneously. She was ambulating without assistance. She was tolerating a diet. Pain was well controlled. was going well. She was passing flatus. Peripartum Data Infant Delivery Method: Section Laceration Description: None Episiotomy description: None Procedures: Primary low-transverse section Spinal anesthesia complications: none [place] 1: Gender: Male Disposition of : home Status at Discharge Cognitive/behavioral status at discharge: oriented Functional status at discharge: independent ambulation Overall status at discharge: patient is progressing back to baseline Time Spent with Patient Time attestation: Total time spent providing and/or coordinating discharge services: Time spent: Less than 30 minutes Objective Labs Result Diagrams: 06/09/20 06:30 Exam Vital Signs (past 8 hours): Oxygen Delivery Method Room Air Narrative Exam Narrative: Generally: Patient is sitting up in bed, no acute distress Lungs: Clear to auscultation bilaterally Cardiovascular: Regular rate and rhythm Fundus: Firm at U -2, deviated to the right Incision: Clean dry and intact with Aquacel dressing Extremities: Negative Homans, no edema Discharge Plan Discharge Plan Patient Disposition: Home Discharge comment: Call with fever, chills, redness or drainage around the incision, or bleeding vaginally more than a pad in an hour Push fluids Ibuprofen 600 mg every 6 hours Tylenol 650 mg every 6 hours or 1 Percocet Discharge orders & Medications Prescriptions: New oxycodone-acetaminophen [Percocet] 5-325 mg tablet 1 tab PO Q4-6H PRN (Reason: pain) Qty: 20 RF: 0 ibuprofen 600 mg tablet 600 mg PO Q6H PRN (Reason: Pain in cramping) Qty: 30 RF: 0 docusate sodium [Colace] 100 mg capsule 100 mg PO DAILY Qty: 20 RF: 0 Continued Mynatal 65 mg iron- 1 mg capsule 1 cap PO QDAY Qty: 90 RF: 3 Follow up/Referrals: Bernadette Ferguson MD [Primary Care Provider] - (Incision check: please follow up w/ Dr. Ferguson on , Jun 15 @ 4:15pm) Diet/Activity/Treatments Diet: Regular Activity: No heavy lifting Skin/Wound/Dressing Care Report to your healthcare provider any signs of infection, such as:: chills, fever, increased pain, unusual drainage and unusual redness Dressing: Do not remove Visit Report/Discharge Packet Instructions: DI for , DI for Prescription Opioid Use Stand Alone Forms: Discharge: Care Discharge Data Primary Care Provider: Bernadette Ferguson Discharges patient from system. Discharge Date/Time: 06/11/20 11:50
== END 2020-06-11 11:50 | disposition home or self-care (01) | DRG 540 ==
PROVIDERS: Admitting Provider Obstetrics & Gynecology; PCP Obstetrics & Gynecology; Referring Provider Obstetrics & Gynecology; Visit Provider Obstetrics & Gynecology
PROC: 10D00Z1 Extraction of Products of Conception, Low, Open Approach (ICD-10-PCS; CPT 59514; principal; 2020-06-08 19:30)
DX: O42.013 Preterm premature rupture of membranes, onset of labor within 24 hours of rupture, third trimester (principal); Z11.59 Encounter for screening for other viral diseases; Z3A.36 36 weeks gestation of pregnancy; Z37.0 Single live birth; Z98.890 Other specified postprocedural states; O26.23 Pregnancy care for patient with recurrent pregnancy loss, third trimester
CPT/HCPCS: 36415; 59025; 59050; 59514; 85014; 85018; 85025; 85461; 86850; 86900; 86901; 87635; G0378; G0379; J0690; J1885; J2274; J2590; J2765; J2790

== ENCOUNTER → 2024-04-20 11:51 | Outpatient (CLI) | payer OTHER, MEDICAID, SELFPAY ==
--- NOTE | 2024-04-20 11:52 | DI.US.S_ITS ---
PROCEDURE: US PELVIC COMPLETE INDICATIONS: KNOWN FIBROIDS; FAMILY PLANNING TECHNIQUE: Real-time scanning was performed of the pelvic organs, with image documentation. Additional endovaginal scanning was necessary due to incomplete visualization of the adnexal and endometrial structures by transabdominal scanning. COMPARISON: [facility], US, US PELVIC COMPLETE, 12/25/2023, 22:43. FINDINGS: Uterus: Enlarged uterus measuring 13.3 x 8.2 x 10.7 cm. Endometrium measures about 9 mm, but is poorly seen. There are numerous fibroids, likely mostly intramural, the largest in the right measuring up to 5.4 cm. The relationship to the endometrium is poorly defined due to size and heterogeneity. Some of the fibroids are likely calcified, further obscuring evaluation Ovaries: Not well seen Other: No pathologic free abdominal or pelvic fluid. IMPRESSION: Enlarged uterus with numerous fibroids. These are poorly evaluated with ultrasound. Consider MRI to further assess if clinically necessary. Dictated by: Edwin Leigh M.D. on 04/20/2024 at 15:31 Approved by: Edwin Leigh M.D. on 04/20/2024 at 15:39
== END ==
PROVIDERS: Referring Provider Obstetrics & Gynecology; Visit Provider Obstetrics & Gynecology
DX: N97.2 Female infertility of uterine origin (principal); N93.9 Abnormal uterine and vaginal bleeding, unspecified; D25.1 Intramural leiomyoma of uterus; D25.0 Submucous leiomyoma of uterus; D25.2 Subserosal leiomyoma of uterus
CPT/HCPCS: 76830; 76856